=== PATIENT | female | born 1995 | race Caucasian/White ===

== ENCOUNTER 2018-11-09 15:49 | Emergency (ER) | payer BC ==
[2018-11-09 15:56] VITALS: O2SAT 100
--- NOTE | 2018-11-09 16:10 | ED PDOC ---
Arrival/HPI - General Chief Complaint: Abnormal Skin Integrity Historian: Patient - History of Present Illness Narrative History of Present Illness (Text): 11/09/18 16:07 23 y/o female, no significant pmh, nkda, last tetanus under 5 years ago, c/o rt. foot laceration x 1 hour. Pt. stated that she accidentally hit the rt. foot on the edge of the door s/p slipped on the water x 1 hour, aching pain, no numbness or tingling, no difficulty moving the rt. foot 5 digits, no dizziness, no other medical or psychological complaints. Past Medical History - Provider Review Nursing Documentation Reviewed: Yes - Psychiatric Hx Psychophysiologic Disorder: No Hx Substance Use: No Family/Social History - Physician Review Nursing Documentation Reviewed: Yes Family/Social History: Unknown Family HX Smoking Status: Never Smoked Hx Alcohol Use: No Hx Substance Use: No Allergies/Home Meds Allergies/Adverse Reactions: Allergies No Known Allergies Allergy (Verified 11/09/18 15:52) Review of Systems - Review of Systems Constitutional: absent: Fatigue, Fevers Eyes: absent: Vision Changes ENT: absent: Hearing Changes Respiratory: absent: SOB, Cough Cardiovascular: absent: Chest Pain Gastrointestinal: absent: Abdominal Pain, Nausea, Vomiting Skin: Laceration. absent: Rash, Pruritis, Skin Lesions, Abscess, Ulcer, Cellulitis Neurological: absent: Headache, Dizziness Psychiatric: absent: Anxiety, Depression, Suicidal Ideation Physical Exam Vital Signs Reviewed: Yes Vital Signs Temp Pulse Resp BP Pulse Ox 11/09/18 15:52 99.0 F 100 H 17 128/71 100 Temperature: Afebrile Blood Pressure: Normal Pulse: Tachycardic Respiratory Rate: Normal Appearance: Positive for: Well-Appearing, Non-Toxic, Comfortable Pain Distress: Mild Mental Status: Positive for: Alert and Oriented X 3 - Systems Exam Head: Present: Atraumatic, Normocephalic Pupils: Present: PERRL Extroacular Muscles: Present: EOMI Conjunctiva: Present: Normal Mouth: Present: Moist Mucous Membranes Pharnyx: No: ERYTHEMA, EXUDATE, TONSILS ENLARGED Nose (External): Present: Atraumatic. No: Abrasion, Contusion, Laceration Nose (Internal): Present: Normal Inspection, No Active Bleeding. No: Rhinorrhea, Septal Hematoma, Epistaxis Neck: Present: Normal Range of Motion, Trachea Midline. No: Meningeal Signs, MIDLINE TENDERNESS, Paraspinal Tenderness, Lymphadenopathy Respiratory/Chest: Present: Clear to Auscultation, Good Air Exchange. No: Respiratory Distress, Accessory Muscle Use Cardiovascular: Present: Regular Rate and Rhythm, Normal S1, S2. No: Murmurs Abdomen: No: Tenderness, Distention, Peritoneal Signs, Rebound, Guarding Back: Present: Normal Inspection Upper Extremity: Present: Normal Inspection, Normal ROM, NORMAL PULSES, Neurovascularly Intact, Capillary Refill < 2s. No: Cyanosis, Edema, Deformity Lower Extremity: Present: Normal Inspection, Normal ROM, Neurovascularly Intact, Capillary Refill < 2 s, Other (Rt. foot: visible approx. 2cm superficial laceration noted with irregular skin edges with no bony tenderness or swelling, no deformity, FROM without limitation, sensation intact, motor 5/5, neurovascular intact. ). No: Edema, NORMAL PULSES, Tenderness, Swelling, Deformity Neurological: Present: GCS=15, CN II-XII Intact, Speech Normal Skin: Present: Warm, Dry, Normal Color. No: Rashes Psychiatric: Present: Alert, Oriented x 3, Normal Insight, Normal Concentration Medical Decision Making ED Course and Treatment: 11/09/18 16:11 -urine hcg -rt. foot xray -observe and reassess 11/09/18 16:16 -Urine hcg is negative -Rt. foot xray ER wet read: no fracture or dislocation. PROCEDURE: LACERATION REPAIR Performed by the emergency provider Location: rt. foot dorsum Length: 2 cm Description: {"clean wound edges","no foreign bodies"} Distal CMS: Normal. No deficits. Neurovascularly intact. Anesthesia: Lidocaine 1% 1cc Preparation: The wound was cleaned with NS 1000cc and clean with Betadine. The area was prepped and draped in the usual sterile fashion. Exploration: The wound was explored and no foreign bodies were found. Procedure: The wound was closed with 5-0 nylon. There was {good / appropriate / adequate / loose} approximation. In total, 5 were used. Post-Procedure: Good closure and hemostasis. The patient tolerated the procedure well and there were no complications. CSM remains intact. Post procedure dressing applied. 11/09/18 17:26 -Discharge home with keflex, take tylenol or motrin for pain, use neosporin, keep the dressing dry and clean for 2 days, sutures need to be removed by day 11-12, follow up with your own pmd and retail marketing executive within 2 days, return to the ER for any new or worsening signs or symptoms. - RAD Interpretation Radiology Orders: 11/09/18 16:07 FOOT RIGHT 3 VIEWS ROUTINE [RAD] Stat Date of service: 11/09/2018 PROCEDURE: Right Foot Radiographs. HISTORY: rt. foot laceration and injury COMPARISON: None. FINDINGS: BONES: Normal. No fracture. JOINTS: Normal. SOFT TISSUES: Soft tissue injury/laceration only seen on the lateral view at the level of the mid metatarsals. The finding is marked on the study for review. No visualized radiopaque foreign body. OTHER FINDINGS: None. IMPRESSION: Soft tissue injury. No adjacent osseous or articular abnormalities. Concordant results with the preliminary interpretation rendered by the emergency department physician\\PA at the conclusion of the procedure. 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 Disposition/Present on Arrival - Present on Arrival Any Indicators Present on Arrival: No History of DVT/PE: No History of Uncontrolled Diabetes: No Urinary Catheter: No History of Decub. Ulcer: No History Surgical Site Infection Following: None - Disposition Have Diagnosis and Disposition been Completed?: Yes Diagnosis: Foot laceration Disposition: HOME/ ROUTINE Disposition Time: 17:28 Patient Plan: Discharge Patient Problems: Current Active Problems Problem Status Onset Foot laceration Acute Condition: IMPROVED Additional Instructions: -Discharge home with keflex, take tylenol or motrin for pain, use neosporin, keep the dressing dry and clean for 2 days, sutures need to be removed by day 11-12, follow up with your own pmd and retail marketing executive within 2 days, return to the ER for any new or worsening signs or symptoms. Prescriptions: Cephalexin [cephalexin] 500 mg PO TID #24 cap Referrals: Jesus Jade DPM [Staff Provider] - Follow up with primary Forms: [employer] (Kyrgyz), SCHOOL NOTE
[2018-11-09 17:36] VITALS: RESP 18
[2018-11-09 17:37] VITALS: BP 130/69; PULSE 75; TEMP 98.2
--- NOTE | 2018-11-09 17:52 | RAD ---
Date of service: 11/09/2018 PROCEDURE: Right Foot Radiographs. HISTORY: rt. foot laceration and injury COMPARISON: None. FINDINGS: BONES: Normal. No fracture. JOINTS: Normal. SOFT TISSUES: Soft tissue injury/laceration only seen on the lateral view at the level of the mid metatarsals. The finding is marked on the study for review. No visualized radiopaque foreign body. OTHER FINDINGS: None. IMPRESSION: Soft tissue injury. No adjacent osseous or articular abnormalities. Concordant results with the preliminary interpretation rendered by the emergency department physician procedure.
== END 2018-11-09 17:38 | disposition home or self-care (01) ==
LOC: ED 15:49
DX: S91.311A Laceration without foreign body, right foot, initial encounter (principal); W22.8XXA Striking against or struck by other objects, initial encounter

== ENCOUNTER 2018-11-24 07:22 | Emergency (ER) | payer BC ==
[2018-11-24 07:51] VITALS: BP 115/76; PULSE 66; RESP 18; TEMP 98.2; O2SAT 98
--- NOTE | 2018-11-24 08:42 | ED PDOC ---
Arrival/HPI - General Chief Complaint: Suture/Staple Removal Historian: Patient - History of Present Illness Narrative History of Present Illness (Text): 11/24/18 08:42 Cris Love is a 23 year old female, with no significant medical history, who presents to the emergency department for suture removal s/p mechanical fall. Patient had 5 sutures on Feburary 26 in the right foot. Patient informs slipping and falling, hitting her right foot. Patient states her cat tried to claw at the suture. Patient dies no numbness or tingling, no difficulty moving the right foot 5 digits, no dizziness, no loss of consciousness, or any other injury. Time/Duration: Prior to Arrival Symptom Onset: Sudden Activities at Onset: Light Context: Home Past Medical History - Provider Review Nursing Documentation Reviewed: Yes - Psychiatric Hx Psychophysiologic Disorder: No Hx Substance Use: No Family/Social History - Physician Review Nursing Documentation Reviewed: Yes Family/Social History: No Known Family HX Smoking Status: Never Smoked Hx Alcohol Use: No Hx Substance Use: No Allergies/Home Meds Allergies/Adverse Reactions: Allergies No Known Allergies Allergy (Verified 11/24/18 07:51) Home Medications: Home Meds Medication Instructions Recorded Confirmed No Known Home Med 11/24/18 11/24/18 Review of Systems - Physician Review All systems were reviewed & negative as marked: Yes - Review of Systems Constitutional: absent: Other (no numberness or tingling) Musculoskeletal: absent: Arthralgias Skin: Laceration (right foot) Neurological: absent: Dizziness, Other (no loss of consciousness) Physical Exam Vital Signs Reviewed: Yes Vital Signs Temp Pulse Resp BP Pulse Ox 11/24/18 07:46 98.2 F 66 18 115/76 98 Temperature: Afebrile Blood Pressure: Normal Pulse: Regular Respiratory Rate: Normal Appearance: Positive for: Well-Appearing, Non-Toxic, Comfortable Pain Distress: None Mental Status: Positive for: Alert and Oriented X 3 - Systems Exam Head: Present: Atraumatic, Normocephalic Pupils: Present: PERRL Extroacular Muscles: Present: EOMI Conjunctiva: Present: Normal Mouth: Present: Moist Mucous Membranes Neck: Present: Normal Range of Motion Respiratory/Chest: Present: Clear to Auscultation, Good Air Exchange. No: Respiratory Distress, Accessory Muscle Use Cardiovascular: Present: Regular Rate and Rhythm, Normal S1, S2. No: Murmurs Abdomen: No: Tenderness, Distention, Peritoneal Signs Back: Present: Normal Inspection Upper Extremity: Present: Normal Inspection. No: Cyanosis, Edema Lower Extremity: Present: Other (laceration to right foot, 5 sutures). No: Edema Skin: Present: Warm, Dry, Laceration (laceration to right foot, 5 sutures). No: Rashes Psychiatric: Present: Alert, Oriented x 3, Normal Insight, Normal Concentration Medical Decision Making ED Course and Treatment: 11/24/18 08:51 Impression: Patient is a 23 year old female who presents to the emergency department for suture removal in the right foot. Differential Diagnosis included but are not limited to: Plan: -- Reassess and disposition Prior Visits: Notes and results from previous visits were reviewed. Progress Notes: 11/24/18 08:51 PROCEDURE: SUTURE REMOVAL Performed by the emergency provider Location: Right foot Distal CMS: Normal. No deficits. Neurovascularly intact. Preparation: The wound was cleaned with NS and Betadyne. The area was prepped and draped in the usual sterile fashion. Procedure: In total, 5 sutures were removed. Post-Procedure: Good closure and hemostasis. The patient tolerated the procedure well and there were no complications. CSM remains intact. - Scribe Statement The provider has reviewed the documentation as recorded by the Scribe Kyle Dior All medical record entries made by the Scribe were at my direction and personally dictated by me. I have reviewed the chart and agree that the record accurately reflects my personal performance of the history, physical exam, medical decision making, and the department course for this patient. I have also personally directed, reviewed, and agree with the discharge instructions and disposition. Disposition/Present on Arrival - Present on Arrival Any Indicators Present on Arrival: No History of DVT/PE: No History of Uncontrolled Diabetes: No Urinary Catheter: No History of Decub. Ulcer: No History Surgical Site Infection Following: None - Disposition Have Diagnosis and Disposition been Completed?: Yes Diagnosis: Visit for suture removal Disposition: HOME/ ROUTINE Disposition Time: 08:00 Condition: GOOD Discharge Instructions (ExitCare): Stitches Removal Additional Instructions: CRIS LOVE, thank you for letting us take care of you today. The emergency medical care you received today was directed at your acute symptoms. If you were prescribed any medication, please fill it and take as directed. It may take several days for your symptoms to resolve. Return to the Emergency Department if your symptoms worsen, do not improve, or if you have any other problems. Please contact your doctor or call one of the physicians/clinics you have been referred to that are listed on the Patient Visit Information form that is included in your discharge packet. Bring any paperwork you were given at discharge with you along with any medications you are taking to your follow up visit. Our treatment cannot replace ongoing medical care by a primary care provider outside of the emergency department. Thank you for allowing the [facility] team to be part of your care today. Follow up with your primary care doctor if you have any concerns. Referrals: [employer] [facility], [Non-Staff] - Follow up with primary Forms: [employer] (Liberian)
== END 2018-11-24 08:15 | disposition home or self-care (01) ==
LOC: ED 07:22
DX: Z48.02 Encounter for removal of sutures (principal)